=== PATIENT | male | born 1995 | race Two or more races ===

== ENCOUNTER 2022-04-21 17:15 | Emergency (ER) | payer MEDICAID, OTHER | END 2022-04-21 17:50 | disposition left against medical advice (07) | LOC: EDBD 17:15 → ER 17:15 | DX: Z04.1 Encounter for examination and observation following transport accident (principal); Z53.21 Procedure and treatment not carried out due to patient leaving prior to being seen by health care provider; V89.2XXA Person injured in unspecified motor-vehicle accident, traffic, initial encounter; Y93.89 Activity, other specified; Y92.89 Other specified places as the place of occurrence of the external cause; Y99.8 Other external cause status ==